=== PATIENT | female | born 1970 | race Hispanic/Latino ===

== ENCOUNTER 2019-04-20 22:16 | Emergency (ER) | payer MEDICAID ==
[2019-04-20 23:43] LABS: Basophils % (Auto) 0.5 % (0.0-1.8); Eosinophils # (Auto) 0.1 K/mm3 (0.0-0.4); Eosinophils % (Auto) 1.5 % (0.0-4.3); Hematocrit 40.7 % (30.3-42.9); Hemoglobin 14.1 gm/dl (10.1-14.3); Lymphocytes # (Auto) 1.8 K/mm3 (1.2-5.4); Lymphocytes % (Auto) 24.6 % (13.4-35.0); Mean Corpuscular HGB Conc 35 % (30-34); Mean Corpuscular Volume 87 fl (79-97); Monocytes # (Auto) 0.5 K/mm3 (0.0-0.8); Monocytes % (Auto) 6.3 % (0.0-7.3); Platelet Count 328 K/mm3 (140-440); Red Blood Count 4.66 M/mm3 (3.65-5.03); Red Cell Distribution Width 13.4 % (13.2-15.2)
[2019-04-20] MEDS ORDERED: ANTIVERT PO ONE (23:48)
[2019-04-20] MEDS ORDERED: ZOFRAN ODT PO ONE (23:48)
[2019-04-20] MEDS ORDERED: NACL 0.9% 1000 ML 1,000 ML IV ONE (23:48)
--- NOTE | 2019-04-20 23:54 | Emergency Department Report ---
ED Dizziness HPI - General Chief Complaint: Dizziness Stated Complaint: DIZZINESS Time Seen by Provider: 04/20/19 23:47 Source: patient Mode of arrival: Ambulatory Limitations: No Limitations - History of Present Illness Initial Comments: Mrs. Rodriguez is a very pleasant 48 yo female with hx of heart murmur who presents with nasal congestion, ear pressure and facial pressure for 1 1/2 weeks. Today, when she lays down, she has room spinning sensation. The spinning sensation lasts for one minute, then resolves spontaneously. She denies speech or gait disturbance. Denies numbness or paralysis. Denies visual changes. Over the last 2 days had left flank pain midaxillary region. Intermittent sharp pain. Denies chest pain otherwise. Denies shortness of breath. Denies leg pain. History of tubal ligation 16 years ago. 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 MD Complaint: dizziness -: Gradual, days(s) (1), week(s) (1.5) Timing: gradual onset Description: "room spinning" History of Same: Yes (1 year ago) History of Trauma: No Severity: mild Improves With: remaining still, rest Worsens With: movement, position - Related Data Home Medications Medication Instructions Recorded Confirmed Last Taken Acetaminophen [Tylenol] 650 mg PO Q6HR PRN 06/27/14 06/27/14 06/27/14 02:00 Previous Rx's Medication Instructions Recorded Last Taken Type Neomy/Polymyx B/Hc (Otic) Soln 4 drops OT TID 10 Days bottle 06/27/14 Unknown Rx [Cortisporin (Otic) Soln] Diphenhydramine HCl [Benadryl 25 mg PO Q6H #30 tablet 07/29/16 Unknown Rx Allergy TAB] Prednisone [predniSONE 5 mg (6-Day 5 mg PO .TAPER #1 tab.ds.pk 07/29/16 Unknown Rx Pack, 21 Tabs)] Amoxicillin/Potassium Clav 1 each PO BID 14 Days #28 tablet 04/21/19 Unknown Rx [Augmentin 875-125 Tablet] Fluticasone [Flonase] 1 spray NS QDAY #1 bottle 04/21/19 Unknown Rx Loratadine 10 mg PO DAILY 30 Days #30 tablet 04/21/19 Unknown Rx Allergies Allergy/AdvReac Type Severity Reaction Status Date / Time codeine Allergy Itching Verified 04/20/19 22:20 ED Review of Systems ROS: Stated complaint: DIZZINESS Other details as noted in HPI Comment: All other systems reviewed and negative Constitutional: denies: fever, malaise Respiratory: denies: cough Cardiovascular: denies: chest pain ED Past Medical Hx - Past Medical History Previous Medical History?: No Additional medical history: heart murmur - Surgical History Past Surgical History?: Yes Additional Surgical History: "clipped nerves behind my eyes as a child" - Social History Smoking Status: Never Smoker Substance Use Type: None - Medications Home Medications: Home Medications Medication Instructions Recorded Confirmed Last Taken Type Acetaminophen [Tylenol] 650 mg PO Q6HR PRN 06/27/14 06/27/14 06/27/14 02:00 History Neomy/Polymyx B/Hc (Otic) Soln 4 drops OT TID 10 Days bottle 06/27/14 Unknown Rx [Cortisporin (Otic) Soln] Diphenhydramine HCl [Benadryl 25 mg PO Q6H #30 tablet 07/29/16 Unknown Rx Allergy TAB] Prednisone [predniSONE 5 mg (6-Day 5 mg PO .TAPER #1 tab.ds.pk 07/29/16 Unknown Rx Pack, 21 Tabs)] Amoxicillin/Potassium Clav 1 each PO BID 14 Days #28 tablet 04/21/19 Unknown Rx [Augmentin 875-125 Tablet] Fluticasone [Flonase] 1 spray NS QDAY #1 bottle 04/21/19 Unknown Rx Loratadine 10 mg PO DAILY 30 Days #30 tablet 04/21/19 Unknown Rx ED Physical Exam - General Limitations: No Limitations General appearance: alert, in no apparent distress - Head Head exam: Present: atraumatic, normocephalic - Eye Eye exam: Present: normal appearance - ENT ENT exam: Present: mucous membranes moist - Neck Neck exam: Present: normal inspection, full ROM - Respiratory Respiratory exam: Present: normal lung sounds bilaterally. Absent: respiratory distress, wheezes, rhonchi - Cardiovascular Cardiovascular Exam: Present: regular rate, normal rhythm, normal heart sounds. Absent: systolic murmur, diastolic murmur, rubs, gallop - GI/Abdominal GI/Abdominal exam: Present: soft, normal bowel sounds. Absent: distended, tenderness, guarding, rebound - Extremities Exam Extremities exam: Present: normal inspection - Back Exam Back exam: Present: normal inspection - Neurological Exam Neurological exam: Present: alert, oriented X3, CN II-XII intact, normal gait. Absent: motor sensory deficit - Psychiatric Psychiatric exam: Present: normal affect, normal mood - Skin Skin exam: Present: warm, dry, intact, normal color. Absent: rash ED Course Vital Signs 04/20/19 22:43 Temperature 98.3 F Pulse Rate 115 H Respiratory 18 Rate Blood Pressure 119/80 ED Medical Decision Making - Lab Data Result diagrams: 04/20/19 23:25 04/20/19 23:25 - Radiology Data Radiology results: report reviewed Sinusitis involving ethmoid sphenoid and left maxillary sinus regions CT of the brain otherwise unremarkable no acute intracranial process. CT angio chest without acute thoracic abnormality. Large gallstone seen - Medical Decision Making 1. Extensive sinusitis involving the ethmoid sphenoid and left maxillary sinuses prescribed Flonase loratadine and Augmentin. Antibiotics indicated due to severe extent of disease. 2. Sinogenic vertigo due to sinusitis prescribed meclizine 3. left chest flank pain atypical for ACS, CTA negative for PE or acute thoracic abnormality Critical care attestation.: If time is entered above; I have spent that time in minutes in the direct care of this critically ill patient, excluding procedure time. ED Disposition Clinical Impression: Acute ethmoidal sinusitis, Acute frontal sinusitis, Acute maxillary sinusitis, Postural vertigo, Chest pain Disposition: DC-01 TO HOME OR SELFCARE Is pt being admited?: No Does the pt Need Aspirin: No Condition: Stable Instructions: Chest Pain (ED), Sinusitis (ED), Vertigo (ED) Prescriptions: Amoxicillin/Potassium Clav [Augmentin 875-125 Tablet] 1 each PO BID 14 Days #28 tablet Fluticasone [Flonase] 1 spray NS QDAY #1 bottle Loratadine 10 mg PO DAILY 30 Days #30 tablet
[2019-04-21 00:04] LABS: Hemolysis Index 3
[2019-04-21 00:47] LABS: BUN/Creatinine Ratio 11; Blood Urea Nitrogen 8 mg/dL (7-17)
[2019-04-21] MEDS ORDERED: VALIUM PO ONE (02:35)
[2019-04-21] MEDS ORDERED: ANTIVERT PO ONE (02:36)
--- NOTE | 2019-04-21 02:48 | Cat Scan Report ---
PROCEDURE: CT HEAD/BRAIN WO CON TECHNIQUE: Computerized tomography of the head was performed without contrast material. CT DOSE LENGTH PRODUCT: mGycm HISTORY: vertigo COMPARISONS: None . FINDINGS: Skull and scalp: Normal . Paranasal sinuses: There is diffuse mucosal thickening in the ethmoid air cells as well as the sphen oid and left maxillary sinuses. . Ventricles and subarachnoid spaces: Normal . Cerebrum: No evidence of hemorrhage, acute infarction or mass . Cerebellum and brainstem: No evidence of hemorrhage, acute infarction or mass . There is mild superi or vermian volume loss. Vasculature: Normal . Other: None . ASPECTS: 10 IMPRESSION: No acute intracranial process. Mild volume loss in the superior aspect of the posterior fossa. Sinusitis as described.. This document is electronically signed by Umberto Ricardo MD., April 21 2019 02:46:05 AM ET
--- NOTE | 2019-04-21 02:53 | Cat Scan Report ---
PROCEDURE: CT ANGIO CHEST TECHNIQUE: Computerized tomographic angiography of the chest was performed after the IV injection of iodinated nonionic contrast including image processing. The image data was postprocessed using 2-di mensional multiplanar reformatted (MPR) and 3-dimensional (MIP and/or volume rendered) techniques. Au tomated exposure control, adjustment of mA and/or kV according to patient size, or iterative reconstr uction dose optimization techniques were utilized. There is mild motion artifact limiting evaluation of the subsegmental pulmonary vessels. HISTORY: Tachycardia left flank pain. COMPARISONS: None . FINDINGS: Heart and pericardium: Normal. Thoracic aorta: Normal. Pulmonary vasculature: No focal filling defect. Lymph nodes: No enlarged thoracic lymph nodes. Lung/pleura: No focal consolidation, pleural effusion or pneumothorax. Musculoskeletal structures: No acute abnormality. Upper abdominal structures: Hepatic steatosis. 1.7 cm gallstone, the gallbladder is decompressed ther e is no adjacent inflammatory change. IMPRESSION: 1. No pulmonary embolism identified. 2. No acute cardiopulmonary disease. 3. 1.7 cm gallstone, no findings of acute cholecystitis. 4. Hepatic steatosis. This document is electronically signed by Jv Menard DO., April 21 2019 02:51:37 AM ET
[2019-04-21 04:15] VITALS: BP 154/96
== END 2019-04-21 03:55 | disposition home or self-care (01) ==
LOC: ED 22:16
DX: J01.10 Acute frontal sinusitis, unspecified (principal); J01.00 Acute maxillary sinusitis, unspecified; R42 Dizziness and giddiness; R07.9 Chest pain, unspecified
CPT/HCPCS: 36415; 70450; 71275; 80048; 85025; 93005; 93010; 96360; 99284; J7030; Q9967; Q0162